=== PATIENT | female | born 1995 | race Hispanic/Latino ===

== ENCOUNTER 2020-11-14 20:00 | Observation (INO) | payer OTHER ==
[2020-11-14] MEDS ORDERED: Zolpidem Tartrate 5 MG TAB PO PRN (20:03)
[2020-11-14] MEDS ORDERED: Acetaminophen 500 MG TAB PO PRN (20:03)
[2020-11-14] MEDS ORDERED: Promethazine HCl 25 MG/ML VIAL IM PRN (20:03)
[2020-11-14] MEDS ORDERED: hydrALAZINE 20 MG/ML VIAL SLOW IVP PRN (20:03)
[2020-11-14] MEDS: Dextrose 5 %-0.45 % NaCl 1,000 ML IV SCH (21:09)
[2020-11-14 23:04] VITALS: BMI 21.9
[2020-11-15] MEDS: Dextrose 5 %-0.45 % NaCl 1,000 ML IV SCH ×4 (05:30→21:35)
[2020-11-15 07:17] LABS: ALT (SGPT) 151 U/L (8-55); AST (SGOT) 68 U/L (5-34); Alkaline Phosphatase 146 U/L (40-110); Anion Gap 12 mmol/L (10-20); BUN (Urea Nitrogen) 9 mg/dL (7.0-18.7); Bilirubin, Total 2.4 mg/dL (0.2-1.2); Calc. Creatinine Clearance 129 mL/min (70-130); Calcium 8.9 mg/dL (7.8-10.44); Carbon Dioxide 24 mmol/L (22-29); Chloride 105 mmol/L (98-107); Globulin 2.9 g/dL (2.4-3.5); Glucose 100 mg/dL (70-105); Potassium 4.1 mmol/L (3.5-5.1); Protein, Total 5.9 g/dL (6.0-8.3); Sodium 137 mmol/L (136-145)
[2020-11-15] MEDS: Ondansetron PF 4 MG/2 ML Vial IVP PRN ×2 (11:37→21:35)
[2020-11-15 19:18] LABS: SARS-CoV-2 PCR by NAA Not Detected (NotDetected)
[2020-11-16] MEDS: Dextrose 5 %-0.45 % NaCl 1,000 ML IV SCH ×2 (05:20→12:57)
[2020-11-16] MEDS: Ondansetron PF 4 MG/2 ML Vial IVP PRN (05:35)
[2020-11-16] MEDS: pyridOXINE 50 MG (B6) TAB PO SCH ×3 (09:24→22:10)
[2020-11-16] MEDS: Doxylamine 25 MG TAB PO SCH ×2 (09:24→22:11)
[2020-11-16] MEDS: Metoclopramide HCl 10 MG/2 ML VIAL IVP PRN ×3 (09:24→22:10)
[2020-11-17] MEDS: Metoclopramide HCl 10 MG/2 ML VIAL IVP PRN (04:10)
[2020-11-17] MEDS: Metoclopramide HCl 10 MG TAB PO SCH ×2 (07:49→12:24)
[2020-11-17] MEDS: Doxylamine 25 MG TAB PO SCH (07:49)
[2020-11-17] MEDS: pyridOXINE 50 MG (B6) TAB PO SCH (07:50)
[2020-11-17 13:52] VITALS: BP 89/54; TEMP 99.3
== END 2020-11-17 13:30 | disposition home or self-care (01) ==
LOC: CSHPP 20:00
PROVIDERS: ADMIT Obstetrics & Gynecology; ATTEND Obstetrics & Gynecology
DX: O21.1 Hyperemesis gravidarum with metabolic disturbance (principal); O34.211 Maternal care for low transverse scar from previous cesarean delivery; Z3A.12 12 weeks gestation of pregnancy
CPT/HCPCS: 36415; 80053; 87635; 96361; 96374; 96375; 96376; G0378; J2405; J2765; U0003; U0005

== ENCOUNTER 2021-05-23 14:29 | Outpatient (CLI) | payer SELFPAY ==
[2021-05-24 00:37] LABS: SARS-CoV-2 PCR by NAA Not Detected (NotDetected)
== END 2021-05-23 14:30 | disposition home or self-care (01) ==
LOC: CSHLAB 14:29
PROVIDERS: ATTEND Obstetrics & Gynecology
DX: Z01.812 Encounter for preprocedural laboratory examination (principal); Z20.822 Contact with and (suspected) exposure to COVID-19
CPT/HCPCS: U0003; U0005

== ENCOUNTER 2021-05-26 05:32 | Inpatient (IN) | payer OTHER, SELFPAY ==
[2021-05-26] MEDS ORDERED: CEFAZOLIN 2 GM in Premix Bag 1 BAG IVPB SCH (06:05)
[2021-05-26] MEDS ORDERED: Famotidine/PF 20 mg/2ml Vial SLOW IVP PRN (06:05)
[2021-05-26] MEDS ORDERED: hydrALAZINE 20 MG/ML VIAL SLOW IVP PRN ×2 (06:05→08:50)
[2021-05-26] MEDS ORDERED: Ondansetron PF 4 MG/2 ML Vial IVP PRN ×3 (06:05→08:50)
[2021-05-26] MEDS ORDERED: Promethazine HCl 25 MG/ML VIAL IM PRN ×2 (06:05→06:54)
[2021-05-26] MEDS ORDERED: Lactated Ringer's 1,000 ML IV SCH (06:05)
[2021-05-26] MEDS ORDERED: Bicitra 30 ML UDCUP PO PRN (06:05)
[2021-05-26 06:42] VITALS: BMI 30.5
[2021-05-26 06:54] LABS: Hemoglobin 12.1 g/dL (12.0-15.5); Mean Corpuscular HGB CONC 32.3 g/dL (32.0-36.0); Mean Corpuscular Volume 96.2 fl (81.6-98.3); Mean Platelet Volume 11.1 fl (7.4-10.4); Platelet Count 226 10x3/uL (150-450); RBC Distribution Width 13.7 % (11.5-14.5); White Blood Cell (WBC) Count 10.5 10x3/uL (3.5-10.5)
[2021-05-26] MEDS ORDERED: Hydrocerin (Eucerin) Cream 120 gm Jar TOP PRN (06:54)
[2021-05-26] MEDS ORDERED: diphenhydrAMINE 50 MG/ML VIAL IVP PRN (06:54)
[2021-05-26] MEDS ORDERED: Promethazine HCl 25 MG SUPP PR PRN (06:54)
[2021-05-26] MEDS ORDERED: Fentanyl 100 MCG/2 ML VIAL SLOW IVP PRN (06:54)
[2021-05-26] MEDS ORDERED: Naloxone HCl 0.4 mg/ml Vial IV PRN (06:54)
[2021-05-26] MEDS ORDERED: Naloxone HCl 0.4 mg/ml Vial IVP PRN ×2 (06:54)
[2021-05-26] MEDS ORDERED: L&D-Morphine 4 MG/ML VIAL SLOW IVP PRN (06:54)
[2021-05-26] MEDS ORDERED: Ondansetron HCl/PF 4 MG/2 ML Vial IVP PRN (06:54)
[2021-05-26] MEDS ORDERED: Meperidine HCl/PF 25 MG/ML VIAL SLOW IVP PRN (06:54)
[2021-05-26] MEDS ORDERED: Ketorolac Tromethamine 30 MG/ML VIAL IVP SCH (07:00)
[2021-05-26] MEDS ORDERED: Communication Order-Pharmacy FS SCH (07:00)
[2021-05-26] MEDS ORDERED: Morphine PF 10 MG/10 ML VIAL ONE (07:09)
[2021-05-26] MEDS ORDERED: Ondansetron PF 4 MG/2 ML Vial ONE (07:09)
[2021-05-26] MEDS ORDERED: Oxytocin 10 UNITS/ML VIAL ONE (07:09)
[2021-05-26] MEDS ORDERED: Dexamethasone 4 mg/ml Vial ONE (07:09)
[2021-05-26] MEDS ORDERED: PHENYLEPHRINE-NS 100 MCG/ML 10 ML SYRINGE ONE (07:09)
[2021-05-26] MEDS ORDERED: Phenylephrine 40 MG/NS 250 ML 250 ML ONE (07:13)
[2021-05-26 07:25] LABS: Syphilis Antibody Nonreactive (Nonreactive); Syphilis Antibody Index 0.05 S/CO (<1.00 Non-Reactive)
[2021-05-26 07:26] LABS: Hep B Surf Ag Non-Reactive S/CO (NonReactive)
[2021-05-26] MEDS ORDERED: Bisacodyl 10 MG SUPP PR PRN (08:50)
[2021-05-26] MEDS ORDERED: Acetaminophen 325 MG TAB PO PRN (08:50)
[2021-05-26] MEDS ORDERED: Boostrix 0.5 ML (Tdap) VIAL IM ONE (08:50)
[2021-05-26] MEDS ORDERED: Lanolin Ointment 7 GM TUBE TOP PRN (08:50)
[2021-05-26] MEDS ORDERED: Misoprostol 200 MCG TAB PR PRN (08:50)
[2021-05-26] MEDS ORDERED: diphenhydrAMINE 25 MG CAP PO PRN (08:50)
[2021-05-26] MEDS ORDERED: NS w/ Oxytocin 30 units 500 ML ONE (09:25)
[2021-05-26] MEDS: Ketorolac Tromethamine 30 MG/ML VIAL IVP PRN ×2 (10:54→22:28)
[2021-05-26 11:37] LABS: HBSAg Index 0.15 S/CO (0-0.99)
[2021-05-26] MEDS: Docusate Calcium (SURFAK) 240 MG CAP PO SCH (12:29)
[2021-05-26] MEDS: Lactated Ringer's 1,000 ML IV SCH (12:29)
[2021-05-26] MEDS: Ferrous Sulfate 325 MG TAB PO SCH (12:29)
[2021-05-26] MEDS: Prenatal Vitamin 1 TAB PO SCH (12:30)
[2021-05-26] MEDS: Ibuprofen 800 MG TAB PO SCH (13:00)
[2021-05-26] MEDS ORDERED: HYDROcodone/Acetaminophen 5/325 mg Tablet PO PRN ×2 (19:00)
[2021-05-26] MEDS ORDERED: Zolpidem Tartrate 5 MG TAB PO PRN (19:00)
[2021-05-27] MEDS: Ketorolac Tromethamine 30 MG/ML VIAL IVP PRN (05:05)
[2021-05-27 05:53] LABS: Hemoglobin 8.9 g/dL (12.0-15.5); Mean Corpuscular HGB CONC 31.8 g/dL (32.0-36.0); Mean Corpuscular Hemoglobin 31.2 pg (27.0-33.0); Mean Corpuscular Volume 98.2 fl (81.6-98.3); Mean Platelet Volume 10.6 fl (7.4-10.4); Platelet Count 149 10x3/uL (150-450); RBC Distribution Width 13.7 % (11.5-14.5); Red Blood Cell (RBC) Count 2.85 10x6/uL (3.90-5.03); White Blood Cell (WBC) Count 12.2 10x3/uL (3.5-10.5)
[2021-05-27] MEDS: Docusate Calcium (SURFAK) 240 MG CAP PO SCH ×3 (09:06→22:20)
[2021-05-27] MEDS: Lactated Ringer's 1,000 ML IV SCH (09:06)
[2021-05-27] MEDS: Ferrous Sulfate 325 MG TAB PO SCH ×3 (09:06→22:20)
[2021-05-27] MEDS: Ibuprofen 800 MG TAB PO SCH ×3 (09:06→22:20)
[2021-05-27] MEDS: Prenatal Vitamin 1 TAB PO SCH (09:09)
[2021-05-27] MEDS: Simethicone Chewable 80 MG TAB PO PRN (22:20)
[2021-05-28] MEDS: Lactated Ringer's 1,000 ML IV SCH ×2 (01:47→08:26)
[2021-05-28] MEDS: Simethicone Chewable 80 MG TAB PO PRN (05:38)
[2021-05-28] MEDS: Ibuprofen 800 MG TAB PO SCH (05:39)
[2021-05-28 07:59] VITALS: BP 94/54; TEMP 98.1
[2021-05-28] MEDS: Ferrous Sulfate 325 MG TAB PO SCH (08:24)
[2021-05-28] MEDS: Docusate Calcium (SURFAK) 240 MG CAP PO SCH (08:24)
[2021-05-28] MEDS: Prenatal Vitamin 1 TAB PO SCH (08:24)
== END 2021-05-28 13:35 | disposition home or self-care (01) | DRG 787 ==
LOC: CSHLD 05:32 → CSHPP 11:15
PROVIDERS: ADMIT Obstetrics & Gynecology; ATTEND Obstetrics & Gynecology
PROC: 10D00Z1 Extraction of Products of Conception, Low, Open Approach (ICD-10-PCS; principal; 2021-05-26)
DX: O34.211 Maternal care for low transverse scar from previous cesarean delivery (principal); O99.354 Diseases of the nervous system complicating childbirth; Z3A.39 39 weeks gestation of pregnancy; Z37.0 Single live birth; G43.909 Migraine, unspecified, not intractable, without status migrainosus; D64.9 Anemia, unspecified; O99.02 Anemia complicating childbirth; Z86.16 Personal history of COVID-19; Z79.899 Other long term (current) drug therapy
CPT/HCPCS: 36415; 85027; 86780; 86850; 86870; 86900; 86901; 86905; 87340; J1100; J1885; J2274; J2405; J2590; J7120; U0003; U0005